=== PATIENT | male | born 1965 | race Caucasian/White ===

== ENCOUNTER 2017-10-23 01:30 | Inpatient (IN) | payer OTHER ==
[2017-10-23 03:08] LABS: BASO # 0.1 K/uL (0.0-0.2); BASO % 0.7 % (0.0-2.0); EOS # 0.2 K/uL (0.0-0.7); EOS % 2.8 % (0.0-4.0); HEMOGLOBIN 15.3 g/dL (12.0-18.0); LYMPH % 26.7 % (20.0-40.0); MEAN CELL VOLUME 93.1 fL (80.0-94.0); MEAN CORPUSCULAR HGB CONC 34.4 g/dL (33.0-37.0); MONO # 0.5 K/uL (0.0-0.8); MONO % 6.3 % (0.0-10.0); NEUT # 4.8 K/uL (1.8-7.0); NEUT % 63.5 % (50.0-75.0); RBC 4.77 Mil/uL (4.40-5.90); RED CELL DISTRIBUTION WIDTH 13.1 % (11.5-14.5); WHITE BLOOD COUNT 7.5 K/uL (4.8-10.8)
[2017-10-23 03:34] LABS: ALB/GLOB RATIO 1.2 (1.0-2.1); ALBUMIN 3.9 g/dL (3.5-5.0); ALT/SGPT 54 U/L (21-72); AST/SGOT 46 U/L (17-59); BLOOD UREA NITROGEN 19 mg/dL (9-20); CALCIUM 9.1 mg/dl (8.6-10.4); GFR AFRICAN-AMERICAN > 60; GFR NON-AFRICAN AMERICAN > 60
--- NOTE | 2017-10-23 03:56 | C.PDOC ---
Time Seen by Provider: 10/23/17 02:38 Chief Complaint (Nursing): Chest Pain Past Medical History Vital Signs: Last Vital Signs Temp 98.2 F 10/23/17 01:38 Pulse 77 10/23/17 01:38 Resp 20 10/23/17 01:38 BP 144/76 10/23/17 01:38 Pulse Ox 97 10/23/17 01:38 - Medical History PMH: HTN, Hypercholesterolemia - Social History Hx Tobacco Use: No Hx Alcohol Use: No Hx Substance Use: No - Immunization History Hx Tetanus Toxoid Vaccination: No Hx Influenza Vaccination: No Hx Pneumococcal Vaccination: No ED Course And Treatment - Laboratory Results Result Diagrams: 10/23/17 03:00 10/23/17 03:00 O2 Sat by Pulse Oximetry: 97 Disposition - Disposition
--- NOTE | 2017-10-23 04:00 | C.PDOC ---
History Of Present Illness 52 y/o male with c/o of midsternal chest pain x 2 days described as intermittent mid chest pressure worse with ambulation and exertion associated with SOB. Pt states pain has decreased somewhat " but feels an uneasy feeling chest. Pt denies URI sx, diaphoresis, dizziness, palpitations. Pt has PMHx HTN, cholesterol and has been noncompliant with meds x weeks. Patient denies past known cardiac h/o Time Seen by Provider: 10/23/17 02:38 Chief Complaint (Nursing): Chest Pain History Per: Patient History/Exam Limitations: no limitations Severity: Mild Pain Scale Rating Of: 4 Associated Symptoms: Dyspnea. denies: Nausea, Diaphoresis, Syncope Alleviating Factors: None Recent travel outside of the [place]: No Past Medical History Vital Signs: Last Vital Signs Temp 98.2 F 10/23/17 01:38 Pulse 84 10/23/17 04:01 Resp 18 10/23/17 04:01 BP 136/71 10/23/17 04:01 Pulse Ox 97 10/23/17 04:35 - Medical History PMH: HTN, Hypercholesterolemia Family History: States: Unknown Family Hx - Social History Hx Tobacco Use: No Hx Alcohol Use: No Hx Substance Use: No - Immunization History Hx Tetanus Toxoid Vaccination: No Hx Influenza Vaccination: No Hx Pneumococcal Vaccination: No Review Of Systems Constitutional: Negative for: Fever Cardiovascular: Positive for: Chest Pain. Negative for: Palpitations, Edema, Light Headedness Respiratory: Positive for: Shortness of Breath. Negative for: Cough, Wheezing Gastrointestinal: Negative for: Nausea, Vomiting, Abdominal Pain Neurological: Negative for: Weakness, Numbness Psych: Negative for: Anxiety Physical Exam - Physical Exam Appears: Well, Non-toxic Skin: Normal Color Eye(s): bilateral: Normal Inspection, PERRL Neck: Normal Cardiovascular: Rhythm Regular Respiratory: Normal Breath Sounds, No Rales, No Stridor, No Wheezing Gastrointestinal/Abdominal: Normal Exam, Soft, No Tenderness Extremity: Normal ROM Neurological/Psych: Oriented x3 Gait: Steady ED Course And Treatment - Laboratory Results Result Diagrams: 10/23/17 03:00 10/23/17 03:00 ECG: Interpreted By Me (and Dr Arevalo), Viewed By Me, Discussed With Supportability Engineer (Dr Padilla) ECG Rhythm: Sinus Rhythm (77), Nonspecific Changes (not a STEMI as per Dr Padilla) ECG Interpretation: No Acute Changes (LVH, early repolarization) O2 Sat by Pulse Oximetry: 97 Pulse Ox Interpretation: Normal - Radiology CXR Interpretation: Yes: No Acute Disease Progress Note: case d/w Randy - environmental protection forester plant operations vice president who reviewed EKG- confirmed NSTEMI and will consult in hospital - Case d/w dr Mandujano for admission. Pt is pain free now, in no distress , VSS Reassessment Condition: Unchanged Disposition Counseled Patient/Family Regarding: Diagnosis, Need For Followup, Rx Given - Disposition Disposition: HOSPITALIZED Disposition Time: 04:55 Condition: STABLE Instructions: Clot Dissolving Drugs for Heart Attack or Stroke Forms: [employer] ([place]) - Clinical Impression Clinical Impression: Chest pain, NSTEMI (non-ST elevated myocardial infarction)
--- NOTE | 2017-10-23 05:55 | CP.PCM.HP ---
<Emery Zaman - Last Filed: 10/23/17 05:45> History of Present Illness - History of Present Illness History of Present Illness: History obtained via [place] ethylene oxide panelboard operator Tory Eli ([id number]) CC: Chest pain and SOB HPI: Patient is a 52 year old [place]-speaking male with a PMH of uncontrolled HTN and hypercholesterolemia who presents complaining of chest pain and shortness of breath. Patient states that last week he experienced 1-2 episodes of chest pain, that became constant over the last two days, prompting his ED visit. Pain is described as burning pain in the center of his chest, nonradiating, constant, 7-8/10 at worst and 0/10 at best, worse with walking and exertion, better with rest, nonpleuritic, nonpositional. Pain is accompanied by difficulty breathing and feeling tired, the way someone feels after running. Patient has no history of similar chest pain/SOB. He last saw a PMD (can't recall name) about 8 months ago for a dizziness spell, at which time he was diagnosed with HTN and high cholesterol and prescribed medication (Losartan-HCTZ , statin, ASA). Patient states that he took the medications for 15 days and stopped because he would forget and didn't feel he needed it. He resumed taking the medications for the last 2 days because he was feeling chest pain. Denies ever having a stress test in the past. PMD: can't remember Basting Cleaner: none PMH: HTN, hypercholesterolemia. Denies DM. PSH: denies Medications: took for 15 days 8 months ago, then stopped, and resumed for last 2 days: Losartan-HCTZ 100/12.5mg, statin (unknown name/dose), ASA 81mg Allergies: denies Family history: No known history of HI/CVA/CA. Mother at unknown age for unknown reason. Father living without health issues at age 99. Brother has DM. Social History: [place] speaking only; lives in [place] with , son and daughter; works various jobs including construction; denies current/prior tobacco use; denies current/prior ETOH; denies current/prior recreational drugs use; denies recent cocaine use; no exercise except for what he does at work; eats various types of food including bread, sandwiches, oatmeal, sugary foods, meat 1-2x per week Code status: Full code No advance directive In the event that he is unable to make his own healthcare decisions, patient wants his Neyda Red to make decisions for him ([phone]) Present on Admission - Present on Admission Any Indicators Present on Admission: No Review of Systems - Constitutional Constitutional: absent: Chills, Fever - Cardiovascular Cardiovascular: Chest Pain, Chest Pain at Rest. absent: Claudication, Diaphoresis, Dyspnea, Dyspnea on Exertion, Palpitations, Syncope - Respiratory Respiratory: absent: Dyspnea, Dyspnea on Exertion - Gastrointestinal Gastrointestinal: absent: Abdominal Pain - Genitourinary Genitourinary: Urinary Frequency - Integumentary Integumentary: absent: Bleeding Lesions - Neurological Neurological: absent: Focal Weakness Past Patient History - Infectious Disease Hx of Infectious Diseases: None - Past Social History Smoking Status: Never Smoked - CARDIAC Hx Hypercholesterolemia: Yes Hx Hypertension: Yes - PSYCHIATRIC Hx Substance Use: No - SURGICAL HISTORY Hx Surgeries: No - ANESTHESIA Hx Anesthesia: No Hx Anesthesia Reactions: No Meds Allergies/Adverse Reactions: Allergies Allergy/AdvReac Type Severity Reaction Status Date / Time No Known Allergies Allergy Verified 10/23/17 01:40 Physical Exam - Constitutional Appears: Non-toxic, No Acute Distress - Head Exam Head Exam: ATRAUMATIC, NORMAL INSPECTION - Eye Exam Eye Exam: EOMI, PERRL - ENT Exam ENT Exam: Mucous Membranes Moist - Respiratory Exam Respiratory Exam: Wheezes, NORMAL BREATHING PATTERN. absent: Rales, Rhonchi Additional comments: Late expiratory wheezing bilaterally - Cardiovascular Exam Cardiovascular Exam: REGULAR RHYTHM, +S1, +S2. absent: Bradycardia, Tachycardia , JVD, Systolic Murmur - GI/Abdominal Exam GI & Abdominal Exam: Normal Bowel Sounds, Soft. absent: Guarding - Extremities Exam Extremities exam: Positive for: normal capillary refill, normal inspection, pedal pulses present. Negative for: pedal edema, tenderness - Neurological Exam Neurological exam: Oriented x3 - Skin Skin Exam: Intact, Normal Color, Warm Results - Vital Signs Recent Vital Signs: Last Vital Signs Temp 98.2 F 10/23/17 01:38 Pulse 84 10/23/17 04:01 Resp 18 10/23/17 04:01 BP 136/71 10/23/17 04:01 Pulse Ox 97 10/23/17 04:57 - Labs Result Diagrams: 10/23/17 03:00 10/23/17 03:00 Labs: Laboratory Results - last 24 hr 10/23/17 10/23/17 03:00 03:00 WBC 7.5 RBC 4.77 Hgb 15.3 Hct 44.4 MCV 93.1 MCH 32.0 H MCHC 34.4 RDW 13.1 Plt Count 268 MPV 8.0 Neut % (Auto) 63.5 Lymph % (Auto) 26.7 [place] % (Auto) 6.3 Eos % (Auto) 2.8 Baso % (Auto) 0.7 Neut # (Auto) 4.8 Lymph # (Auto) 2.0 [place] # (Auto) 0.5 Eos # (Auto) 0.2 Baso # (Auto) 0.1 Sodium 139 Potassium 3.8 Chloride 96 L Carbon Dioxide 28 Anion Gap 19 BUN 19 Creatinine 0.9 Est GFR ( Amer) > 60 Est GFR (Non-Af Amer) > 60 Random Glucose 91 Calcium 9.1 Total Bilirubin 0.5 AST 46 ALT 54 Alkaline Phosphatase 64 Troponin I 1.1100 H* Total Protein 7.3 Albumin 3.9 Globulin 3.4 Albumin/Globulin Ratio 1.2 Assessment & Plan (1) NSTEMI (non-ST elevated myocardial infarction) Assessment and Plan: Troponin ELEVATED 1.110 EKG reviewed - ST segment depressions, LVH RIAN score 4 - HIGH RISK (ASA use in past 7 days, Severe angina, EKG ST changes , Positive cardiac markers) Basting Cleaner Dr Padilla on board * Cardiac Cath soon - possibly today ASA 81mg PO QD Lovenox 75mg SC QD Metoprolol Tartrate 25mg PO BID Lisinopril 5mg PO QD Crestor 10mg PO HS Will hold second antiplatelet at Dr Padilla's request F/U serial ALINA's/EKG's F/U Lipid panel F/U TSH and Free T4 F/U HgA1C F/U ECHO Status: Acute Priority: High (2) Hypertension Assessment and Plan: BP well controlled HOLD home med Losartan-HCTZ 100/12.5mg Status: Acute Priority: High (3) HLD (hyperlipidemia) Assessment and Plan: F/U Lipid Panel Crestor 10mg PO QD Status: Acute Priority: High (4) Prophylactic measure Assessment and Plan: On therapeutic lovenox GI prophylaxis not indicated SCDs NPO for now as patient might have cardiac cath today Status: Acute Priority: Low <Dany Mandujano - Last Filed: 10/23/17 06:27> Results - Vital Signs Recent Vital Signs: Last Vital Signs Temp 98.2 F 10/23/17 01:38 Pulse 78 10/23/17 06:00 Resp 14 10/23/17 06:00 BP 157/83 H 10/23/17 06:00 Pulse Ox 96 10/23/17 06:00 - Labs Result Diagrams: 10/23/17 03:00 10/23/17 03:00 Labs: Laboratory Results - last 24 hr 10/23/17 10/23/17 10/23/17 03:00 03:00 05:52 WBC 7.5 RBC 4.77 Hgb 15.3 Hct 44.4 MCV 93.1 MCH 32.0 H MCHC 34.4 RDW 13.1 Plt Count 268 MPV 8.0 Neut % (Auto) 63.5 Lymph % (Auto) 26.7 [place] % (Auto) 6.3 Eos % (Auto) 2.8 Baso % (Auto) 0.7 Neut # (Auto) 4.8 Lymph # (Auto) 2.0 [place] # (Auto) 0.5 Eos # (Auto) 0.2 Baso # (Auto) 0.1 Sodium 139 Potassium 3.8 Chloride 96 L Carbon Dioxide 28 Anion Gap 19 BUN 19 Creatinine 0.9 Est GFR ( Amer) > 60 Est GFR (Non-Af Amer) > 60 Random Glucose 91 Calcium 9.1 Phosphorus 4.0 Magnesium 2.2 Total Bilirubin 0.5 AST 46 ALT 54 Alkaline Phosphatase 64 Troponin I 1.1100 H* Total Protein 7.3 Albumin 3.9 Globulin 3.4 Albumin/Globulin Ratio 1.2 Triglycerides 150 H D Cholesterol 181 LDL Cholesterol Direct 150 H HDL Cholesterol 23 L Assessment & Plan - Date & Time Date: 10/23/17 (I have seen and examined the patient. I agree with the findings and plan of care as documented by Dr. Zaman. Patient with NSTEMI. ROMIx3 with EKG. Aspirin. Statin. Lovenox. Metoprolol. 2D Echo. Monitor for acute changes.) Time: 06:26 Attending/Attestation - Attestation I have personally seen and examined this patient.: Yes I have fully participated in the care of the patient.: Yes I have reviewed all pertinent clinical information: Yes
[2017-10-23 06:09] LABS: MAGNESIUM 2.2 mg/dL (1.6-2.3)
[2017-10-23] MEDS: Enoxaparin 80 mg Syringe SC SCH ×3 (07:10→21:28)
[2017-10-23] MEDS ORDERED: Enoxaparin 80 mg Syringe ONE (07:11)
[2017-10-23 10:00] LABS: CK-MB 4.88 ng/mL (0.0-3.38); TROPONIN I 0.844 ng/mL (0.00-0.120)
--- NOTE | 2017-10-23 10:08 | RAD ---
HISTORY: COMPARISON: 11/29/2013. TECHNIQUE: Chest PA and lateral FINDINGS: LINES AND TUBES: None. LUNG AND PLEURA: The lungs are well inflated and clear. HEART AND MEDIASTINUM: The heart is not enlarged. The hilar and mediastinal contours are within normal limits. SKELETAL STRUCTURES: The bony structures are within normal limits for the patient's age. VISUALIZED UPPER ABDOMEN: Normal. OTHER FINDINGS: None. IMPRESSION: No active pulmonary disease.
[2017-10-23 15:40] LABS: CK-MB 4.95 ng/mL (0.0-3.38); TROPONIN I 0.839 ng/mL (0.00-0.120)
--- NOTE | 2017-10-23 16:30 | CP.PCM.PN ---
<Robbi Kevin E - Last Filed: 10/23/17 16:51> Subjective - Date & Time of Evaluation Date of Evaluation: 10/23/17 Time of Evaluation: 09:25 - Subjective Subjective: Medicine progress note ( Dr. Salas's service) Patient was seen and examined at bedside, with presents. Patient was resting comfortably sleeping. During the encounter, patient reports that he is doing well with very mild intermittent chest pain but denies nausea, vomiting, diaphoresis, palpitations, abdominal pain or any numbness and tingling. Patient was seen again around 3:20pm, due result on subsequent EKG. Patient was resting comfortably in bed, watching TV on his phone and denies chest pain. Patient reports that he actually feels better. Patient was seen again 4:10pm and denies chest pain or any other symptoms. Objective - Vital Signs/Intake and Output Vital Signs (last 24 hours): Temp Pulse Resp BP Pulse Ox 98.9 F 78 20 165/83 H 95 10/23/17 14:51 10/23/17 14:51 10/23/17 14:51 10/23/17 14:51 10/23/17 14:51 - Medications Medications: Current Medications Aspirin (Aspirin Chewable) 81 mg PO DAILY [facility] Last Admin: 10/23/17 10:17 Dose: 81 mg Enoxaparin Sodium (Lovenox) 75 mg SC Q12 [facility] Last Admin: 10/23/17 07:58 Dose: Not Given Lisinopril (Zestril) 5 mg PO DAILY [facility] Last Admin: 10/23/17 10:17 Dose: 5 mg Metoprolol Tartrate (Lopressor) 25 mg PO BID [facility] Last Admin: 10/23/17 10:17 Dose: 25 mg Pneumococcal Polyvalent Vaccine (Pneumovax 23 Vaccine) 0.5 ml IM .ONCE ONE Stop: 10/24/17 10:01 Rosuvastatin Calcium (Crestor) 10 mg PO HS [facility] Last Admin: 10/23/17 06:50 Dose: Not Given - Labs Labs: 10/23/17 03:00 10/23/17 03:00 - Constitutional Appears: Well, No Acute Distress - Head Exam Head Exam: ATRAUMATIC, NORMAL INSPECTION - Eye Exam Eye Exam: EOMI, Normal appearance - ENT Exam ENT Exam: Mucous Membranes Moist - Respiratory Exam Respiratory Exam: Clear to Ausculation Bilateral, NORMAL BREATHING PATTERN. absent: Rhonchi, Wheezes, Respiratory Distress - Cardiovascular Exam Cardiovascular Exam: REGULAR RHYTHM, +S1, +S2. absent: Murmur - GI/Abdominal Exam GI & Abdominal Exam: Soft, Normal Bowel Sounds. absent: Firm, Guarding, Rigid, Tenderness - Extremities Exam Extremities Exam: Normal Inspection. absent: Calf Tenderness, Pedal Edema - Neurological Exam Neurological Exam: Alert, Awake, Oriented x3 - Psychiatric Exam Psychiatric exam: Normal Affect, Normal Mood - Skin Skin Exam: Normal Color Assessment and Plan (1) NSTEMI (non-ST elevated myocardial infarction) Assessment & Plan: Cardiology Consult, Dr. Padilla----> Help appreciated Labs: Troponin: 1.110---> 0.8440---->0.8390 EKG reviewed - ST segment depressions, LVH. Subsequent EKG: reported as anterior infarct, troponin trending down and patient remain asymptomatic RIAN score 4 - HIGH RISK (ASA use in past 7 days, Severe angina, EKG ST changes , Positive cardiac markers) Lipid panel: TGL:150, Cholesterol: 181, LDL: 150 and HDL:23 TSH: 5.43 and Free T4: 0.78 Hemoglobin A1C: 5.8 Imaging: * Awaiting official echo report Medications: * ASA 81mg PO QD * Lovenox 75mg SC QD * Metoprolol Tartrate 25mg PO BID * Crestor 10mg PO HS * Will hold second antiplatelet at Dr Padilla's request Status: Acute (2) Hypertension Assessment & Plan: Metoprolol 25mg PO BID Lisinopril 5mg PO daily Continue to monitor with vital sign check Status: Acute (3) HLD (hyperlipidemia) Assessment & Plan: Lipid panel: TGL:150, Cholesterol: 181, LDL: 150 and HDL:23 Medication: * Crestor 10mg PO HS Status: Acute (4) Prophylactic measure Assessment & Plan: GI: Pepcid 20mg PO daily DVT: Lovenox 75mg SC Q12H Heart healthy diet All plans and management discussed with attending, Dr. Salas Status: Acute <Shayna Salas V - Last Filed: 10/23/17 23:32> Objective - Vital Signs/Intake and Output Vital Signs (last 24 hours): Temp Pulse Resp BP Pulse Ox 98.2 F 82 18 120/76 96 10/23/17 19:19 10/23/17 19:19 10/23/17 19:19 10/23/17 19:19 10/23/17 19:19 Intake and Output: 10/23/17 10/24/17 18:59 06:59 Intake Total 200 Balance 200 - Medications Medications: Current Medications Aspirin (Aspirin Chewable) 81 mg PO DAILY [facility] Last Admin: 10/23/17 10:17 Dose: 81 mg Enoxaparin Sodium (Lovenox) 75 mg SC Q12 [facility] Stop: 10/24/17 06:00 Last Admin: 10/23/17 21:28 Dose: Not Given Famotidine (Pepcid) 20 mg PO DAILY [facility] Lisinopril (Zestril) 5 mg PO DAILY [facility] Last Admin: 10/23/17 10:17 Dose: 5 mg Metoprolol Tartrate (Lopressor) 25 mg PO BID [facility] Last Admin: 10/23/17 18:04 Dose: 25 mg Pneumococcal Polyvalent Vaccine (Pneumovax 23 Vaccine) 0.5 ml IM .ONCE ONE Stop: 10/24/17 10:01 Rosuvastatin Calcium (Crestor) 10 mg PO HS [facility] Last Admin: 10/23/17 21:26 Dose: 10 mg - Labs Labs: 10/23/17 03:00 10/23/17 03:00 Attending/Attestation - Attestation I have personally seen and examined this patient.: Yes I have fully participated in the care of the patient.: Yes I have reviewed all pertinent clinical information, including history, physical exam and plan: Yes Notes (Text): Patient seen, examined and case discuss with medical auditor. Patient seen during morning rounds after completing his echocardiogram. Patient reports chest pain has subsided, denies CANO, nausea, denies vomitting, denies headache. Patient reports chest pain on exertion for 2 days which he describes as pressure but denies any currently. Reviewed subsequent EKG with Dr. Padilla, nonstemi, and scheduled for cardiac cath in AM. NPO after midnight. Will hold Lovenox in the AM for Cardiac cath at 10AM. Cardiology is aware of consult and has seen the patient today. Assessment/Plan (1) NSTEMI (non-ST elevated myocardial infarction) Impaired Glucose Tolerance Assessment & Plan: * Cardiology Consult, Dr. Padilla----> Help appreciated Labs: * Troponin: 1.110---> 0.8440---->0.8390 * EKG reviewed - ST segment depressions, LVH. Subsequent EKG: reported as anterior infarct, troponin trending down and patient remain asymptomatic * RIAN score 4 - HIGH RISK (ASA use in past 7 days, Severe angina, EKG ST changes, Positive cardiac markers) * Lipid panel: TGL:150, Cholesterol: 181, LDL: 150 and HDL:23 * TSH: 5.43 and Free T4: 0.78 * Hemoglobin A1C: 5.8 Imaging: * Awaiting official echo report Medications: * ASA 81mg PO QD * Lovenox 75mg SC Q12-->hold AM dose for cath * Metoprolol Tartrate 25mg PO BID * Crestor 10mg PO HS * Cardiac cath in AM, 10/24 Status: Acute (2) Hypertension Assessment & Plan: * Metoprolol 25mg PO BID * Lisinopril 5mg PO daily * Continue to monitor with vital sign check Status: Chronic (3) HLD (hyperlipidemia) Assessment & Plan: * Lipid panel: TGL:150, Cholesterol: 181, LDL: 150 and HDL:23 Medication: * Crestor 10mg PO HS Status: Chronic (4) Prophylactic measure Assessment & Plan: GI: Pepcid 20mg PO daily DVT: Lovenox 75mg SC Q12H Heart healthy diet NPO after midnight Status: Acute Disposition: Patient is NPO for cardiac cath in AM 10AM. Cardiology is on board.
--- NOTE | 2017-10-23 23:03 | CARD ---
APPROVED REPORT EXAM: Two-dimensional and M-mode echocardiogram with Doppler and color Doppler. Other Information Quality : GoodRhythm : INDICATION Chest Pain Non STEMI RISK FACTORS Hypertension Hyperlipidemia 2D DIMENSIONS IVSd1.5 (0.7-1.1cm)LVDd4.4 (3.9-5.9cm) PWd1.5 (0.7-1.1cm)LVDs2.8 (2.5-4.0cm) FS (%) 37.0 %LVEF (%)67.1 (>50%) M-Mode DIMENSIONS Left Atrium (MM)3.99 (2.5-4.0cm)Aortic Root3.67 (2.2-3.7cm) Aortic Cusp Exc.2.37 (1.5-2.0cm) Mitral Valve MV E Pekcmocb79.2cm/sMV A Xuxjdmhv33.2cm/sE/A ratio1.1 TDI E/Lateral E'0.0E/Medial E'0.0 Tricuspid Valve TR Peak [id number]/sTR Peak [id number] <Conclusion> Left ventricle: thickness: normal; size: normal; overall ejection fraction: 65%: diastolic filling pressures: elevated Mitral valve: annulus: normal: leaflets: normal: excursion: normal; no significant trans-mitral gradient: mild incompetence: left atrium: normal Aortic valve: leaflets: normal: excursion: normal; no significant trans-aortic gradient: No significant incompetence: aortic root: normal Right sided Structures: Pulmonary valve: normal; no significant incompetence; Tricuspid valve: normal; no significant incompetence: Intra-cardiac hemodynamics: pulmonary systolic pressures: normal; central venous pressures: normal No pericardial effusion
--- NOTE | 2017-10-24 00:25 | CP.PCM.CON ---
History of Present Illness - History of Present Illness History of Present Illness: Consulation for evaluation of CP and NSTEMI HPI: 52 year old male with hx of HTN, dyslipidemia presenting with c/o intermittent cp x 1 week accompanied with SOB. Sx got progrssively worse with increased frequency and intensity for which he came to the ED. Initial EKG done showed LVH with repolarization and had +ve TnI. Echo done today showed normal LVEF with moderate concentric LVH. Review of Systems - Review of Systems Systems not reviewed;Unavailable: Acuity of Condition - Constitutional Constitutional: As Per HPI - EENT Eyes: As Per HPI Ears: As Per HPI Nose/Mouth/Throat: As Per HPI - Cardiovascular Cardiovascular: As Per HPI, Chest Pain, Diaphoresis, Dyspnea, Dyspnea on Exertion - Respiratory Respiratory: As Per HPI - Gastrointestinal Gastrointestinal: As Per HPI - Genitourinary Genitourinary: As Per HPI - Reproductive: Male Reproductive:Male: As Per HPI - Musculoskeletal Musculoskeletal: As Per HPI - Integumentary Integumentary: As Per HPI - Neurological Neurological: As Per HPI - Psychiatric Psychiatric: As Per HPI - Endocrine Endocrine: As Per HPI - Hematologic/Lymphatic Hematologic: As Per HPI Past Patient History - Infectious Disease Hx of Infectious Diseases: None - Past Medical History & Family History Past Medical History?: Yes - Past Social History Smoking Status: Never Smoked - CARDIAC Hx Cardiac Disorders: Yes Hx Hypercholesterolemia: Yes Hx Hypertension: Yes - PULMONARY Hx Respiratory Disorders: No - NEUROLOGICAL Hx Neurological Disorder: No - HEENT Hx HEENT Problems: No - RENAL Hx Chronic Kidney Disease: No - ENDOCRINE/METABOLIC Hx Endocrine Disorders: No - HEMATOLOGICAL/ONCOLOGICAL Hx Blood Disorders: No - INTEGUMENTARY Hx Dermatological Problems: No - MUSCULOSKELETAL/RHEUMATOLOGICAL Hx Musculoskeletal Disorders: No Hx Falls: No - GASTROINTESTINAL Hx Gastrointestinal Disorders: No - GENITOURINARY/GYNECOLOGICAL Hx Genitourinary Disorders: No - PSYCHIATRIC Hx Psychophysiologic Disorder: No Hx Substance Use: No - SURGICAL HISTORY Hx Surgeries: No - ANESTHESIA Hx Anesthesia: No Hx Anesthesia Reactions: No Hx Malignant Hyperthermia: No Has any member of the family had a problem w/ anesthesia?: No Meds Allergies/Adverse Reactions: Allergies Allergy/AdvReac Type Severity Reaction Status Date / Time No Known Allergies Allergy Verified 10/23/17 01:40 - Medications Medications: Current Medications Aspirin (Aspirin Chewable) 81 mg PO DAILY [facility] Last Admin: 10/23/17 10:17 Dose: 81 mg Enoxaparin Sodium (Lovenox) 75 mg SC Q12 [facility] Stop: 10/24/17 06:00 Last Admin: 10/23/17 21:28 Dose: Not Given Famotidine (Pepcid) 20 mg PO DAILY [facility] Lisinopril (Zestril) 5 mg PO DAILY [facility] Last Admin: 10/23/17 10:17 Dose: 5 mg Metoprolol Tartrate (Lopressor) 25 mg PO BID [facility] Last Admin: 10/23/17 18:04 Dose: 25 mg Pneumococcal Polyvalent Vaccine (Pneumovax 23 Vaccine) 0.5 ml IM .ONCE ONE Stop: 10/24/17 10:01 Rosuvastatin Calcium (Crestor) [address] [facility] Last Admin: 10/23/17 21:26 Dose: 10 mg Physical Exam - Constitutional Appears: Well - Head Exam Head Exam: ATRAUMATIC, NORMAL INSPECTION, NORMOCEPHALIC - Eye Exam Eye Exam: EOMI, Normal appearance, PERRL Pupil Exam: NORMAL ACCOMODATION, PERRL - ENT Exam ENT Exam: Mucous Membranes Moist, Normal Exam - Neck Exam Neck exam: Positive for: Normal Inspection - Respiratory Exam Respiratory Exam: Clear to Auscultation Bilateral, NORMAL BREATHING PATTERN - Cardiovascular Exam Cardiovascular Exam: REGULAR RHYTHM, RRR, +S1, +S2, Systolic Murmur - GI/Abdominal Exam GI & Abdominal Exam: Normal Bowel Sounds, Soft. absent: Tenderness - Extremities Exam Extremities exam: Positive for: normal inspection - Back Exam Back exam: NORMAL INSPECTION - Neurological Exam Neurological exam: Alert, CN II-XII Intact, Normal Gait, Oriented x3, Reflexes Normal - Psychiatric Exam Psychiatric exam: Normal Affect, Normal Mood - Skin Skin Exam: Dry, Intact, Normal Color, Warm Results - Vital Signs Recent Vital Signs: Last Vital Signs Temp 98.2 F 10/23/17 19:19 Pulse 82 10/23/17 19:19 Resp 18 10/23/17 19:19 BP 120/76 10/23/17 19:19 Pulse Ox 96 10/23/17 19:19 - Labs Result Diagrams: 10/23/17 03:00 10/23/17 03:00 Labs: Laboratory Results - last 24 hr 10/23/17 10/23/17 10/23/17 03:00 03:00 05:52 WBC 7.5 RBC 4.77 Hgb 15.3 Hct 44.4 MCV 93.1 MCH 32.0 H MCHC 34.4 RDW 13.1 Plt Count 268 MPV 8.0 Neut % (Auto) 63.5 Lymph % (Auto) 26.7 [place] % (Auto) 6.3 Eos % (Auto) 2.8 Baso % (Auto) 0.7 Neut # (Auto) 4.8 Lymph # (Auto) 2.0 [place] # (Auto) 0.5 Eos # (Auto) 0.2 Baso # (Auto) 0.1 Sodium 139 Potassium 3.8 Chloride 96 L Carbon Dioxide 28 Anion Gap 19 BUN 19 Creatinine 0.9 Est GFR ( Amer) > 60 Est GFR (Non-Af Amer) > 60 Random Glucose 91 Hemoglobin A1c Calcium 9.1 Phosphorus Magnesium Total Bilirubin 0.5 AST 46 ALT 54 Alkaline Phosphatase 64 Total Creatine Kinase CK-MB (Mass) Troponin I 1.1100 H* Total Protein 7.3 Albumin 3.9 Globulin 3.4 Albumin/Globulin Ratio 1.2 Triglycerides Cholesterol LDL Cholesterol Direct HDL Cholesterol Free T4 0.78 TSH 3rd Generation 10/23/17 10/23/17 10/23/17 05:52 05:52 09:25 WBC RBC Hgb Hct MCV MCH MCHC RDW Plt Count MPV Neut % (Auto) Lymph % (Auto) [place] % (Auto) Eos % (Auto) Baso % (Auto) Neut # (Auto) Lymph # (Auto) [place] # (Auto) Eos # (Auto) Baso # (Auto) Sodium Potassium Chloride Carbon Dioxide Anion Gap BUN Creatinine Est GFR ( Amer) Est GFR (Non-Af Amer) Random Glucose Hemoglobin A1c 5.8 Calcium Phosphorus 4.0 Magnesium 2.2 Total Bilirubin AST ALT Alkaline Phosphatase Total Creatine Kinase 157 CK-MB (Mass) 4.88 H Troponin I 0.8440 H* Total Protein Albumin Globulin Albumin/Globulin Ratio Triglycerides 150 H D Cholesterol 181 LDL Cholesterol Direct 150 H HDL Cholesterol 23 L Free T4 TSH 3rd Generation 5.43 H 10/23/17 15:05 WBC RBC Hgb Hct MCV MCH MCHC RDW Plt Count MPV Neut % (Auto) Lymph % (Auto) [place] % (Auto) Eos % (Auto) Baso % (Auto) Neut # (Auto) Lymph # (Auto) [place] # (Auto) Eos # (Auto) Baso # (Auto) Sodium Potassium Chloride Carbon Dioxide Anion Gap BUN Creatinine Est GFR ( Amer) Est GFR (Non-Af Amer) Random Glucose Hemoglobin A1c Calcium Phosphorus Magnesium Total Bilirubin AST ALT Alkaline Phosphatase Total Creatine Kinase 150 CK-MB (Mass) 4.95 H Troponin I 0.8390 H* Total Protein Albumin Globulin Albumin/Globulin Ratio Triglycerides Cholesterol LDL Cholesterol Direct HDL Cholesterol Free T4 TSH 3rd Generation Assessment & Plan (1) NSTEMI (non-ST elevated myocardial infarction) Assessment and Plan: AC per ACS protocol asa, bb, statins arbs plan for cardiac cath in am npo p mn Status: Acute Priority: High (2) Chest pain Status: Acute (3) HLD (hyperlipidemia) Status: Acute Priority: High (4) Hypertension Status: Acute Priority: High
[2017-10-24 04:28] LABS: BASO # 0.1 K/uL (0.0-0.2); BASO % 0.8 % (0.0-2.0); EOS # 0.2 K/uL (0.0-0.7); EOS % 2.9 % (0.0-4.0); HEMOGLOBIN 15.8 g/dL (12.0-18.0); LYMPH # 2.1 K/uL (1.0-4.3); LYMPH % 26.8 % (20.0-40.0); MEAN CELL VOLUME 92.6 fL (80.0-94.0); MEAN CORPUSCULAR HEMOGLOBIN 31.9 pg (27.0-31.0); MEAN CORPUSCULAR HGB CONC 34.4 g/dL (33.0-37.0); MEAN PLATELET VOLUME 7.6 fL (7.2-11.7); MONO # 0.6 K/uL (0.0-0.8); MONO % 8.1 % (0.0-10.0); NEUT # 4.7 K/uL (1.8-7.0); NEUT % 61.4 % (50.0-75.0); NRBC % 0.4 % (0.0-2.0); RBC 4.96 Mil/uL (4.40-5.90); WHITE BLOOD COUNT 7.7 K/uL (4.8-10.8)
[2017-10-24 04:44] LABS: ALB/GLOB RATIO 1.2 (1.0-2.1); ALBUMIN 3.8 g/dL (3.5-5.0); ALT/SGPT 44 U/L (21-72); AST/SGOT 38 U/L (17-59); BLOOD UREA NITROGEN 17 mg/dL (9-20); CALCIUM 9.2 mg/dl (8.6-10.4); GFR AFRICAN-AMERICAN > 60; GFR NON-AFRICAN AMERICAN > 60; MAGNESIUM 2.4 mg/dL (1.6-2.3)
--- NOTE | 2017-10-24 07:50 | CARD ---
APPROVED REPORT EKG Measurement Heart [id number] <Conclusion> Normal sinus rhythm Left ventricular hypertrophy with repolarization abnormality Abnormal ECG
[2017-10-24 08:16] LABS: INR 1.1; PROTHROMBIN TIME 12.3 SECONDS (9.7-12.2)
[2017-10-24] MEDS ORDERED: Pneumococcal 23-Valent Vaccine IM ONE (10:00)
[2017-10-24] MEDS ORDERED: Influenza Vaccine 60 mcg/0.5 mL SYR (4YR UP) IM ONE (10:00)
[2017-10-24] MEDS ORDERED: Midazolam 2 MG/2 ML VIAL ONE (10:12)
[2017-10-24] MEDS ORDERED: Verapamil 2 ML ONE (11:00)
[2017-10-24] MEDS ORDERED: Iodixanol 320 MG/ML 200 ML BOTTLE IV ONE (11:15)
--- NOTE | 2017-10-24 11:23 | CP.PCM.PN ---
Subjective - Date & Time of Evaluation Date of Evaluation: 10/24/17 Time of Evaluation: 11:23 - Subjective Subjective: Patient seen and examined post- cardiac catheterization. Patient reports no chest pain, pain at the site of insertion (radial) artery utilized, or hematoma. Objective - Vital Signs/Intake and Output Vital Signs (last 24 hours): Temp Pulse Resp BP Pulse Ox 98.5 F 76 20 130/77 96 10/24/17 08:00 10/24/17 08:00 10/24/17 08:00 10/24/17 09:09 10/24/17 08:00 Intake and Output: 10/24/17 10/24/17 06:59 18:59 Intake Total 210 Balance 210 - Medications Medications: Current Medications Aspirin (Aspirin Chewable) 81 mg PO DAILY [facility] Last Admin: 10/24/17 09:09 Dose: 81 mg Famotidine (Pepcid) 20 mg PO DAILY [facility] Last Admin: 10/24/17 09:11 Dose: 20 mg Lisinopril (Zestril) 5 mg PO DAILY [facility] Last Admin: 10/24/17 09:10 Dose: 5 mg Metoprolol Tartrate (Lopressor) 25 mg PO BID [facility] Last Admin: 10/24/17 09:09 Dose: 25 mg Rosuvastatin Calcium (Crestor) 10 mg PO [facility] Last Admin: 10/23/17 21:26 Dose: 10 mg - Labs Labs: 10/24/17 04:24 10/24/17 04:24 PT 12.3 SECONDS (9.7-12.2) H 10/24/17 07:58 INR 1.1 10/24/17 07:58 APTT 35 SECONDS (21-34) H 10/24/17 07:58 - Constitutional Appears: Non-toxic, No Acute Distress - Head Exam Head Exam: ATRAUMATIC, NORMOCEPHALIC - Eye Exam Eye Exam: EOMI, Normal appearance - Neck Exam Neck Exam: Normal Inspection - Respiratory Exam Respiratory Exam: NORMAL BREATHING PATTERN. absent: Decreased Breath Sounds, Clear to Ausculation Bilateral - Cardiovascular Exam Cardiovascular Exam: +S1, +S2 - Extremities Exam Extremities Exam: Normal Inspection. absent: Tenderness - Back Exam Back Exam: NORMAL INSPECTION. absent: CVA tenderness (L), CVA tenderness (R) - Neurological Exam Neurological Exam: Alert, Awake, Oriented x3 - Psychiatric Exam Psychiatric exam: Normal Affect, Normal Mood - Skin Skin Exam: Dry, Intact, Normal Color, Warm Assessment and Plan - Assessment and Plan (Free Text) Assessment: 52 year old male who presented to [facility] with chest pain, diaphoresis, and EKG and laboratory findings consistent with [place]. Plan: Further recommendations per attending physician Dr. Padilla.
--- NOTE | 2017-10-24 13:15 | CP.PCM.PN ---
<Robbi Kevin E - Last Filed: 10/24/17 13:22> Subjective - Date & Time of Evaluation Date of Evaluation: 10/24/17 Time of Evaluation: 07:30 - Subjective Subjective: Medicine progress note ( Dr. Salas's service) Patient was seen and examined at bedside. Patient was resting comfortably sleeping. During the encounter, patient reports that he is doing well with no complaints. Patient denies chest pain, SOB, palpitations, nausea, vomiting, fever, chills and diaphoresis. Patient is aware that he has a cardiac catherization today. As per patient, there were no acute issues overnight. Objective - Vital Signs/Intake and Output Vital Signs (last 24 hours): Temp Pulse Resp BP Pulse Ox 98.5 F 76 20 130/77 96 10/24/17 08:00 10/24/17 08:00 10/24/17 08:00 10/24/17 09:09 10/24/17 08:00 Intake and Output: 10/24/17 10/24/17 06:59 18:59 Intake Total 210 Balance 210 - Medications Medications: Current Medications Aspirin (Aspirin Chewable) 81 mg PO DAILY [facility] Last Admin: 10/24/17 09:09 Dose: 81 mg Famotidine (Pepcid) 20 mg PO DAILY [facility] Last Admin: 10/24/17 09:11 Dose: 20 mg Lisinopril (Zestril) 5 mg PO DAILY [facility] Last Admin: 10/24/17 09:10 Dose: 5 mg Metoprolol Tartrate (Lopressor) 25 mg PO BID [facility] Last Admin: 10/24/17 09:09 Dose: 25 mg Rosuvastatin Calcium (Crestor) 10 mg PO [facility] Last Admin: 10/23/17 21:26 Dose: 10 mg - Labs Labs: 10/24/17 04:24 10/24/17 04:24 PT 12.3 SECONDS (9.7-12.2) H 10/24/17 07:58 INR 1.1 10/24/17 07:58 APTT 35 SECONDS (21-34) H 10/24/17 07:58 - Constitutional Appears: Well, No Acute Distress - Head Exam Head Exam: ATRAUMATIC, NORMAL INSPECTION - Eye Exam Eye Exam: EOMI, Normal appearance - ENT Exam ENT Exam: Mucous Membranes Moist - Respiratory Exam Respiratory Exam: Clear to Ausculation Bilateral, NORMAL BREATHING PATTERN. absent: Rales, Rhonchi, Wheezes - Cardiovascular Exam Cardiovascular Exam: REGULAR RHYTHM, +S1, +S2. absent: Tachycardia, Murmur - GI/Abdominal Exam GI & Abdominal Exam: Soft, Normal Bowel Sounds. absent: Distended, Firm, Guarding, Rigid, Tenderness - Extremities Exam Extremities Exam: Normal Inspection. absent: Calf Tenderness, Pedal Edema - Neurological Exam Neurological Exam: Alert, Awake, Oriented x3 - Psychiatric Exam Psychiatric exam: Normal Affect - Skin Skin Exam: Normal Color Assessment and Plan (1) NSTEMI (non-ST elevated myocardial infarction) Assessment & Plan: Cardiology Consult, Dr. Padilla----> Help appreciated * Cardiac catherization with Dr. Padilla 10/24/17; will f/u report and manage as per recommendation Labs: Troponin: 1.110---> 0.8440---->0.8390 EKG reviewed - ST segment depressions, LVH. Subsequent EKG: reported as anterior infarct, troponin trending down and patient remain asymptomatic RIAN score 4 - HIGH RISK (ASA use in past 7 days, Severe angina, EKG ST changes , Positive cardiac markers) Lipid panel: TGL:150, Cholesterol: 181, LDL: 150 and HDL:23 TSH: 5.43 and Free T4: 0.78 Hemoglobin A1C: 5.8 Imaging: * Awaiting official echo report Medications: * ASA 81mg PO QD * Lovenox 75mg SC QD-Held for cardiac catherization procedure * Metoprolol Tartrate 25mg PO BID * Crestor 10mg PO HS * Will hold second antiplatelet at Dr Padilla's request Status: Acute (2) Hypertension Assessment & Plan: Metoprolol 25mg PO BID Lisinopril 5mg PO daily Continue to monitor with vital sign check Status: Acute (3) HLD (hyperlipidemia) Assessment & Plan: Lipid panel: TGL:150, Cholesterol: 181, LDL: 150 and HDL:23 Medication: * Crestor 10mg PO HS Status: Acute (4) Prophylactic measure Assessment & Plan: GI: Pepcid 20mg PO daily DVT: Lovenox 75mg SC Q12H: Held due to cardiac catherization procedure. Will restart as per cardiology recommendation Heart healthy diet All plans and management discussed with attending, Dr. Borker Status: Acute <Shayna Salas V - Last Filed: 10/24/17 23:58> Objective - Vital Signs/Intake and Output Vital Signs (last 24 hours): Temp Pulse Resp BP Pulse Ox 98.1 F 71 18 153/86 H 98 10/24/17 15:47 10/24/17 16:00 10/24/17 15:47 10/24/17 18:05 10/24/17 15:47 Intake and Output: 10/24/17 10/25/17 18:59 06:59 Intake Total 480 Output Total 400 Balance 80 - Medications Medications: Current Medications Aspirin (Aspirin Chewable) 81 mg PO DAILY [facility] Last Admin: 10/24/17 09:09 Dose: 81 mg Famotidine (Pepcid) 20 mg PO DAILY [facility] Last Admin: 10/24/17 09:11 Dose: 20 mg Lisinopril (Zestril) 5 mg PO DAILY [facility] Last Admin: 10/24/17 09:10 Dose: 5 mg Metoprolol Tartrate (Lopressor) 25 mg PO BID [facility] Last Admin: 10/24/17 18:05 Dose: 25 mg Rosuvastatin Calcium (Crestor) 10 mg PO HS [facility] Last Admin: 10/24/17 21:22 Dose: 10 mg - Labs Labs: 10/24/17 04:24 10/24/17 04:24 PT 12.3 SECONDS (9.7-12.2) H 10/24/17 07:58 INR 1.1 10/24/17 07:58 APTT 35 SECONDS (21-34) H 10/24/17 07:58 Attending/Attestation - Attestation I have personally seen and examined this patient.: Yes I have fully participated in the care of the patient.: Yes I have reviewed all pertinent clinical information, including history, physical exam and plan: Yes Notes (Text): Patient seen, examined, case discussed with medical staff services coordinator. Patient seen and examined post cardiac cath today. Patient denies chest pain denies shortness of breath denies nausea denies vomiting. Patient's left wrist resting on pillow no noted bleeding. Discussed with cardiology patient noted to have triple-vessel disease on cardiac cath. Cardiology has made recommendations for for stenting of RCA and ostial medial and for future date possibly the LAD. Patient's A1c reflects he has impaired glucose tolerance. Patient with his present made aware of cardiac cath findings recommendation for stent placement assistance for recommendation translation provided with both my Turkish-speaking rested as well as Jesica Turkish speaking nurse at bedside. Patient has allowed for a cardiac cath for stents will discuss with cardiology to make arrangements for stent placement. Patient is aware that he would be going to our neighboring hospital for stent placement unaware of what time patient will be need to be transported. Discuss with cardiology would want cardiac cath for stent placement in light of his findings.
--- NOTE | 2017-10-24 21:15 | CP.PCM.PN ---
Subjective - Date & Time of Evaluation Date of Evaluation: 10/24/17 Time of Evaluation: 17:00 - Subjective Subjective: s/p lhcx in am today showing triple vessel CAD ( low syntax score ) in a nondiabetic feeling fine denies any complaints Objective - Vital Signs/Intake and Output Vital Signs (last 24 hours): Temp Pulse Resp BP Pulse Ox 98.1 F 71 18 153/86 H 98 10/24/17 15:47 10/24/17 16:00 10/24/17 15:47 10/24/17 18:05 10/24/17 15:47 Intake and Output: 10/24/17 10/25/17 18:59 06:59 Intake Total 480 Output Total 400 Balance 80 - Medications Medications: Current Medications Aspirin (Aspirin Chewable) 81 mg PO DAILY [facility] Last Admin: 10/24/17 09:09 Dose: 81 mg Famotidine (Pepcid) 20 mg PO DAILY [facility] Last Admin: 10/24/17 09:11 Dose: 20 mg Lisinopril (Zestril) 5 mg PO DAILY [facility] Last Admin: 10/24/17 09:10 Dose: 5 mg Metoprolol Tartrate (Lopressor) 25 mg PO BID [facility] Last Admin: 10/24/17 18:05 Dose: 25 mg Rosuvastatin Calcium (Crestor) 10 mg PO HS [facility] Last Admin: 10/23/17 21:26 Dose: 10 mg - Labs Labs: 10/24/17 04:24 10/24/17 04:24 PT 12.3 SECONDS (9.7-12.2) H 10/24/17 07:58 INR 1.1 10/24/17 07:58 APTT 35 SECONDS (21-34) H 10/24/17 07:58 - Constitutional Appears: Well - Head Exam Head Exam: ATRAUMATIC, NORMAL INSPECTION, NORMOCEPHALIC - Eye Exam Eye Exam: EOMI, Normal appearance, PERRL Pupil Exam: NORMAL ACCOMODATION, PERRL - ENT Exam ENT Exam: Mucous Membranes Moist, Normal Exam - Neck Exam Neck Exam: Full ROM, Normal Inspection. absent: Lymphadenopathy - Respiratory Exam Respiratory Exam: Clear to Ausculation Bilateral, NORMAL BREATHING PATTERN - Cardiovascular Exam Cardiovascular Exam: REGULAR RHYTHM, +S1, +S2. absent: Murmur - GI/Abdominal Exam GI & Abdominal Exam: Soft, Normal Bowel Sounds. absent: Tenderness - Extremities Exam Extremities Exam: Full ROM, Normal Capillary Refill, Normal Inspection. absent : Joint Swelling, Pedal Edema - Back Exam Back Exam: NORMAL INSPECTION - Neurological Exam Neurological Exam: Alert, Awake, CN II-XII Intact, Normal Gait, Oriented x3 - Psychiatric Exam Psychiatric exam: Normal Affect, Normal Mood - Skin Skin Exam: Dry, Intact, Normal Color, Warm Assessment and Plan (1) NSTEMI (non-ST elevated myocardial infarction) Assessment & Plan: triple vessel CAD discussed with patient CABG vs. PCI for low syntax score in a non-diabetic plan for PTCA/stenting of RCA/LCx in am cont asa load with plavix 600mg po x 1 today and then 75mg po daily cont bb, statins, cont acei NPO p mn for cath in am at [facility] Status: Acute (2) Chest pain Status: Acute (3) HLD (hyperlipidemia) Status: Acute (4) Hypertension Status: Acute
--- NOTE | 2017-10-24 23:38 | CARDCATH ---
PROCEDURE DATE: 10/24/2017 INDICATIONS: Mr. Hubert Red is a 52-year-old male who presented to [facility] with complaints of chest pain, unstable angina, and nonST-elevation IN with mildly positive troponins. He underwent echocardiogram showing normal left ventricular ejection fraction, moderate concentric hypertrophy and was brought to the cardiac carpenter labor supervisor for evaluation of non ST-elevation. PROCEDURES PERFORMED: Left heart catheterization with selective left and right coronary angiogram via left radial approach, 6-Kiswahili left radial arterial access, wristband for hemostasis, left ventriculogram. CORONARY ANATOMY: RCA is large-sized vessel that bifurcates into PDA and PLV branches. RCA has ostial 50% stenosis and mid ruptured plaque, 85% stenosis. Distal PDA trifurcates into three branches. The middle branch has diffuse disease and then PL branch is about 60% proximal stenosis. Proximal RCA has 70% to 80% stenosis. Left main is a large-sized vessel that bifurcates into LAD and left circumflex coronary artery. Left circumflex has a mid 70% stenosis that gives off medium-sized obtuse marginal branch which has ostial 80% stenosis. Obtuse marginal 2 has a proximal 90% stenosis and then the left circumflex runs in the AV groove as a medium-sized vessel. Left anterior descending artery has a proximal 70% long diffused lesion, gives off two small-sized diagonal branches. Mid LAD has [id number] 405 to 50% stenosis. Normal left ventricular ejection fraction with end-diastolic pressure of 40-50 mmHg. IMPRESSION: Triple vessel coronary artery disease in a non-diabetic patient, low SYNTAX score. RECOMMENDATIONS: Keep the patient on IV heparin. We will discuss with the patient revascularization strategy of stenting versus CABG. Winston Padilla MD
[2017-10-25 00:54] VITALS: RESP 20
[2017-10-25 05:37] LABS: BASO % 0.4 % (0.0-2.0); EOS # 0.1 K/uL (0.0-0.7); EOS % 1.8 % (0.0-4.0); HEMOGLOBIN 15.8 g/dL (12.0-18.0); LYMPH # 1.8 K/uL (1.0-4.3); LYMPH % 22.6 % (20.0-40.0); MEAN CELL VOLUME 92.9 fL (80.0-94.0); MEAN CORPUSCULAR HEMOGLOBIN 31.9 pg (27.0-31.0); MEAN CORPUSCULAR HGB CONC 34.4 g/dL (33.0-37.0); MEAN PLATELET VOLUME 8.1 fL (7.2-11.7); MONO # 0.6 K/uL (0.0-0.8); MONO % 7.4 % (0.0-10.0); NEUT # 5.5 K/uL (1.8-7.0); NEUT % 67.8 % (50.0-75.0); RBC 4.94 Mil/uL (4.40-5.90); RED CELL DISTRIBUTION WIDTH 13.1 % (11.5-14.5); WHITE BLOOD COUNT 8.1 K/uL (4.8-10.8)
--- NOTE | 2017-10-25 08:06 | CP.PCM.PN ---
Subjective - Date & Time of Evaluation Date of Evaluation: 10/25/17 Time of Evaluation: 06:59 - Subjective Subjective: Patient preparing to be transferred to [facility] for PCI. Patient asymptomatic; denied chest pain, dyspnea, or palpitations. Left radial wrist band intact and no evidence of hematoma at catheter insertion site. Day-time and overnight nurse report 300 mg of Plavix was given prior to transfer. Otherwise no events reported overnight. Objective - Vital Signs/Intake and Output Vital Signs (last 24 hours): Temp Pulse Resp BP Pulse Ox 98.4 F 68 20 155/88 H 94 L 10/24/17 23:30 10/24/17 23:30 10/24/17 23:30 10/25/17 04:54 10/24/17 23:30 Intake and Output: 10/25/17 10/25/17 06:59 18:59 Intake Total 400 Balance 400 - Medications Medications: Current Medications Aspirin (Ecotrin) 81 mg PO DAILY [facility] Clopidogrel Bisulfate (Plavix) 75 mg PO DAILY [facility] Famotidine (Pepcid) 20 mg PO DAILY [facility] Last Admin: 10/24/17 09:11 Dose: 20 mg Lisinopril (Zestril) 10 mg PO DAILY [facility] Metoprolol Tartrate (Lopressor) 25 mg PO BID [facility] Last Admin: 10/25/17 04:54 Dose: 25 mg Rosuvastatin Calcium (Crestor) 40 mg PO HS [facility] - Labs Labs: 10/25/17 05:16 10/24/17 04:24 PT 12.3 SECONDS (9.7-12.2) H 10/24/17 07:58 INR 1.1 10/24/17 07:58 APTT 35 SECONDS (21-34) H 10/24/17 07:58 - Constitutional Appears: Well, Non-toxic - Head Exam Head Exam: ATRAUMATIC, NORMOCEPHALIC - Eye Exam Eye Exam: EOMI, Normal appearance - Respiratory Exam Respiratory Exam: Clear to Ausculation Bilateral, NORMAL BREATHING PATTERN. absent: Accessory Muscle Use - Cardiovascular Exam Cardiovascular Exam: +S1, +S2. absent: Tachycardia, Clicks - Extremities Exam Extremities Exam: absent: Pedal Edema Additional comments: catheter insertion site shows no hematoma - Neurological Exam Neurological Exam: Alert, Awake, Oriented x3 - Psychiatric Exam Psychiatric exam: Normal Affect, Normal Mood - Skin Skin Exam: Dry, Intact, Normal Color, Warm Assessment and Plan - Assessment and Plan (Free Text) Assessment: 52 year old male with a past medical history of hypertension and dyslipidemia who presented to [facility] with typical chest pain and was found to have EKG abnormalities and elevated troponins. He was treated as a NSTEMI and underwent left heart catheterization with selective left and right coronary angiograms via left radial approach that revealed triple vessel coronary artery disease in a non-diabetic patient, with a low SYNTAX score. Plan: 1) Triple vessel CAD in a non-diabetic with a low SYNTAX score - Aspirin 81 PO daily - Plavix 300 mg PO given today 10/25/17; will continue with 75 mg PO once daily going forward - Metoprolol tartarate 25 BID (will switch to ER as metoprolol succinate was the only drug proven to decrease mortality post MN) - Lisinopril 10 mg (increased for better BP) - Rosuvastatin 40 mg High Intensity Statin post MN - Will follow up PTCA/stenting of RCA/LCx Further recommendations per Dr. Padilla.
[2017-10-25 08:44] LABS: BLOOD UREA NITROGEN 15 mg/dL (9-20); GFR AFRICAN-AMERICAN > 60; GFR NON-AFRICAN AMERICAN > 60
[2017-10-25 08:45] LABS: ALB/GLOB RATIO 1.2 (1.0-2.1); ALBUMIN 3.7 g/dL (3.5-5.0); ALT/SGPT 41 U/L (21-72); AST/SGOT 33 U/L (17-59); CALCIUM 8.6 mg/dl (8.6-10.4); MAGNESIUM 2.3 mg/dL (1.6-2.3)
[2017-10-25] MEDS ORDERED: Labetalol 25mg/5ml Syringe ONE (10:28)
--- NOTE | 2017-10-25 11:35 | CP.PCM.PN ---
<Robbi Kevin E - Last Filed: 10/25/17 11:49> Subjective - Date & Time of Evaluation Date of Evaluation: 10/25/17 Time of Evaluation: 06:50 - Subjective Subjective: Medicine progress note ( Dr. Salas's service) Patient was seen and examined as he was preparing to be transported to [facility] for PCI. Patient reports that he is doing well with improved symptoms. Patient denied chest pain, SOB, palpitations, diaphoresis, nausea and vomiting. Objective - Vital Signs/Intake and Output Vital Signs (last 24 hours): Temp Pulse Resp BP Pulse Ox 97.9 F 67 20 143/82 96 10/25/17 06:50 10/25/17 06:50 10/25/17 06:50 10/25/17 06:50 10/25/17 06:50 Intake and Output: 10/25/17 10/25/17 06:59 18:59 Intake Total 450 Balance 450 - Medications Medications: Current Medications Aspirin (Ecotrin) 81 mg PO DAILY [facility] Last Admin: 10/25/17 10:05 Dose: Not Given Clopidogrel Bisulfate (Plavix) 75 mg PO DAILY [facility] Famotidine (Pepcid) 20 mg PO DAILY [facility] Last Admin: 10/25/17 10:05 Dose: Not Given Lisinopril (Zestril) 10 mg PO DAILY [facility] Last Admin: 10/25/17 10:05 Dose: Not Given Metoprolol Tartrate (Lopressor) 25 mg PO BID [facility] Last Admin: 10/25/17 10:05 Dose: Not Given Rosuvastatin Calcium (Crestor) 40 mg PO [facility] - Labs Labs: 10/25/17 05:16 10/25/17 05:16 PT 12.3 SECONDS (9.7-12.2) H 10/24/17 07:58 INR 1.1 10/24/17 07:58 APTT 35 SECONDS (21-34) H 10/24/17 07:58 - Constitutional Appears: Well, No Acute Distress - Head Exam Head Exam: ATRAUMATIC, NORMAL INSPECTION - Eye Exam Eye Exam: EOMI, Normal appearance - ENT Exam ENT Exam: Mucous Membranes Moist - Respiratory Exam Respiratory Exam: Clear to Ausculation Bilateral, NORMAL BREATHING PATTERN. absent: Rhonchi, Wheezes, Respiratory Distress - Cardiovascular Exam Cardiovascular Exam: REGULAR RHYTHM, +S1, +S2. absent: Murmur - GI/Abdominal Exam GI & Abdominal Exam: Soft, Normal Bowel Sounds. absent: Distended, Firm, Guarding, Rigid, Tenderness - Extremities Exam Extremities Exam: Normal Inspection. absent: Calf Tenderness - Neurological Exam Neurological Exam: Alert, Awake, Oriented x3 - Psychiatric Exam Psychiatric exam: Normal Affect Assessment and Plan (1) NSTEMI (non-ST elevated myocardial infarction) Assessment & Plan: Cardiology Consult, Dr. Padilla----> Help appreciated * Cardiac catherization with Dr. 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 Subsequent EKG: reported as anterior infarct, troponin trending down and patient remain asymptomatic RIAN score 4 - HIGH RISK (ASA use in past 7 days, Severe angina, EKG ST changes , Positive cardiac markers) Lipid panel: TGL:150, Cholesterol: 181, LDL: 150 and HDL:23 TSH: 5.43 and Free T4: 0.78 Hemoglobin A1C: 5.8 Imaging: * Echocardiogram: Left ventricle thickness normal with normal size. EF: 65%. Diastolic filling pressures elevated. For a complete impression, please refer to complete report. Medications: * ASA 81mg PO QD * Lovenox 75mg SC QD-Held for cardiac catherization procedure * Metoprolol Tartrate 25mg PO BID * Crestor 10mg PO HS * Plavix 75mg PO daily Status: Acute (2) Hypertension Assessment & Plan: Metoprolol 25mg PO BID Lisinopril 5mg PO daily Continue to monitor with vital sign check Status: Acute (3) HLD (hyperlipidemia) Assessment & Plan: Lipid panel: TGL:150, Cholesterol: 181, LDL: 150 and HDL:23 Medication: * Crestor 10mg PO HS Status: Acute (4) Prophylactic measure Assessment & Plan: GI: Pepcid 20mg PO daily DVT: Lovenox 75mg SC Q12H: Held due to cardiac catherization procedure and PCI. Will resume as per cardiology recommendation Heart healthy diet All plans and management discussed with attending, Dr. Salas Status: Acute <JosueShayna V - Last Filed: 10/25/17 23:20> Objective - Vital Signs/Intake and Output Vital Signs (last 24 hours): Temp Pulse Resp BP Pulse Ox 97.9 F 67 20 143/82 96 10/25/17 06:50 10/25/17 06:50 10/25/17 06:50 10/25/17 06:50 10/25/17 06:50 - Medications Medications: Current Medications Aspirin (Ecotrin) 81 mg PO DAILY [facility] Last Admin: 10/25/17 10:05 Dose: Not Given Clopidogrel Bisulfate (Plavix) 75 mg PO DAILY [facility] Famotidine (Pepcid) 20 mg PO DAILY [facility] Last Admin: 10/25/17 10:05 Dose: Not Given Lisinopril (Zestril) 10 mg PO DAILY [facility] Last Admin: 10/25/17 10:05 Dose: Not Given Metoprolol Tartrate (Lopressor) 25 mg PO BID [facility] Last Admin: 10/25/17 19:41 Dose: Not Given Rosuvastatin Calcium (Crestor) 40 mg PO HS [facility] - Labs Labs: 10/25/17 05:16 10/25/17 05:16 PT 12.3 SECONDS (9.7-12.2) H 10/24/17 07:58 INR 1.1 10/24/17 07:58 APTT 35 SECONDS (21-34) H 10/24/17 07:58 Attending/Attestation - Attestation Notes (Text): Attempted to see patient today but had left for [place] this morning for his cardiac cath. Will attempt to follow-up with patient when he returns. Patient went to [facility] for cardiac cath in light of triple vessel disease.
[2017-10-26 07:28] LABS: BASO % 0.5 % (0.0-2.0); EOS # 0.1 K/uL (0.0-0.7); EOS % 1.6 % (0.0-4.0); HEMOGLOBIN 15.1 g/dL (12.0-18.0); LYMPH # 1.4 K/uL (1.0-4.3); LYMPH % 19.4 % (20.0-40.0); MEAN CELL VOLUME 91.8 fL (80.0-94.0); MEAN CORPUSCULAR HEMOGLOBIN 32.4 pg (27.0-31.0); MEAN CORPUSCULAR HGB CONC 35.3 g/dL (33.0-37.0); MONO # 0.5 K/uL (0.0-0.8); MONO % 7.5 % (0.0-10.0); NEUT # 5.1 K/uL (1.8-7.0); NRBC % 0.1 % (0.0-2.0); RBC 4.67 Mil/uL (4.40-5.90); RED CELL DISTRIBUTION WIDTH 12.5 % (11.5-14.5); WHITE BLOOD COUNT 7.2 K/uL (4.8-10.8)
[2017-10-26 10:51] LABS: ALB/GLOB RATIO 1.1 (1.0-2.1); ALBUMIN 3.7 g/dL (3.5-5.0); ALT/SGPT 42 U/L (21-72); AST/SGOT 40 U/L (17-59); BLOOD UREA NITROGEN 11 mg/dL (9-20); CALCIUM 8.8 mg/dl (8.6-10.4); GFR AFRICAN-AMERICAN > 60; GFR NON-AFRICAN AMERICAN > 60; MAGNESIUM 2.2 mg/dL (1.6-2.3)
--- NOTE | 2017-10-26 17:22 | CP.PCM.PN ---
<Robbi Kevin E - Last Filed: 10/26/17 17:20> Subjective - Date & Time of Evaluation Date of Evaluation: 10/26/17 Time of Evaluation: 07:35 - Subjective Subjective: Medicine progress note ( Dr. Salas's service) Patient was seen and examined at bedside. Patient was resting comfortably in no acute distress with patient's present. Patient is s/p PCI POD #1. Patient reports that he is doing well with improved symptoms. Patient denied chest pain , SOB, palpitations, diaphoresis, nausea, vomiting, fever or chills. Patient is ambulating and tolerating diet. Objective - Vital Signs/Intake and Output Vital Signs (last 24 hours): Temp Pulse Resp BP Pulse Ox 99.0 F 80 20 161/89 H 95 10/26/17 15:20 10/26/17 15:20 10/26/17 15:20 10/26/17 15:20 10/26/17 15:20 Intake and Output: 10/26/17 10/26/17 06:59 18:59 Intake Total 700 400 Output Total 400 Balance 300 400 - Medications Medications: Current Medications Aspirin (Ecotrin) 81 mg PO DAILY [facility] Last Admin: 10/26/17 10:11 Dose: 81 mg Clopidogrel Bisulfate (Plavix) 75 mg PO DAILY [facility] Last Admin: 10/26/17 10:11 Dose: 75 mg Famotidine (Pepcid) 20 mg PO DAILY [facility] Last Admin: 10/26/17 10:11 Dose: 20 mg Lisinopril (Zestril) 10 mg PO DAILY [facility] Last Admin: 10/26/17 10:11 Dose: 10 mg Metoprolol Tartrate (Lopressor) 25 mg PO BID [facility] Last Admin: 10/26/17 10:11 Dose: 25 mg Rosuvastatin Calcium (Crestor) 40 mg PO HS [facility] Last Admin: 10/25/17 23:33 Dose: Not Given - Labs Labs: 10/26/17 07:13 10/26/17 07:13 PT 12.3 SECONDS (9.7-12.2) H 10/24/17 07:58 INR 1.1 10/24/17 07:58 APTT 35 SECONDS (21-34) H 10/24/17 07:58 - Constitutional Appears: Well, No Acute Distress - Head Exam Head Exam: ATRAUMATIC, NORMAL INSPECTION - Eye Exam Eye Exam: EOMI, Normal appearance - ENT Exam ENT Exam: Mucous Membranes Moist - Respiratory Exam Respiratory Exam: Clear to Ausculation Bilateral, NORMAL BREATHING PATTERN. absent: Rhonchi, Wheezes - Cardiovascular Exam Cardiovascular Exam: REGULAR RHYTHM, +S1, +S2. absent: Murmur - GI/Abdominal Exam GI & Abdominal Exam: Soft, Normal Bowel Sounds. absent: Guarding, Rigid, Tenderness - Extremities Exam Extremities Exam: Normal Inspection Additional comments: S/P PCI POD #1 and diagnostic cardiac catherization POD # 2. Right groin, no hematoma. Palpable bilateral DP and PT pulses - Neurological Exam Neurological Exam: Alert, Awake, Oriented x3 - Psychiatric Exam Psychiatric exam: Normal Affect - Skin Skin Exam: Normal Color Assessment and Plan (1) NSTEMI (non-ST elevated myocardial infarction) Assessment & Plan: NSTEMI (non-ST elevated myocardial infarction) Assessment & Plan: Cardiology Consult, Dr. Padilla----> Help appreciated * Cardiac catherization with Dr. 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 Subsequent EKG: reported as anterior infarct, troponin trending down and patient remain asymptomatic RIAN score 4 - HIGH RISK (ASA use in past 7 days, Severe angina, EKG ST changes , Positive cardiac markers) Lipid panel: TGL:150, Cholesterol: 181, LDL: 150 and HDL:23 TSH: 5.43 and Free T4: 0.78 Hemoglobin A1C: 5.8 Imaging: * Echocardiogram: Left ventricle thickness normal with normal size. EF: 65%. Diastolic filling pressures elevated. For a complete impression, please refer to complete report. Medications: * ASA 81mg PO Q * Metoprolol Tartrate 25mg PO BID * Crestor 40mg PO HS * Plavix 75mg PO daily Status: Acute (2) Hypertension Assessment & Plan: Metoprolol 25mg PO BID Lisinopril 5mg PO daily Continue to monitor with vital sign check Status: Acute (3) HLD (hyperlipidemia) Assessment & Plan: Lipid panel: TGL:150, Cholesterol: 181, LDL: 150 and HDL:23 Medication: * Crestor 40mg PO HS Status: Acute (4) Prophylactic measure Assessment & Plan: GI: Pepcid 20mg PO daily DVT: Lovenox 75mg SC Q12H: Held due to cardiac catherization procedure and PCI. Will resume as per cardiology recommendation Heart healthy diet Patient is ambulating Disposition: Will await cardiac clearance in order to discharge patient All plans and management discussed with attending, Dr. Salas Status: Acute <Shayna Salas V - Last Filed: 10/26/17 17:55> Objective - Vital Signs/Intake and Output Vital Signs (last 24 hours): Temp Pulse Resp BP Pulse Ox 99.0 F 80 20 161/89 H 95 10/26/17 15:20 10/26/17 15:20 10/26/17 15:20 10/26/17 15:20 10/26/17 15:20 Intake and Output: 10/26/17 10/26/17 06:59 18:59 Intake Total 700 400 Output Total 400 Balance 300 400 - Medications Medications: Current Medications Aspirin (Ecotrin) 81 mg PO DAILY [facility] Last Admin: 10/26/17 10:11 Dose: 81 mg Clopidogrel Bisulfate (Plavix) 75 mg PO DAILY [facility] Last Admin: 10/26/17 10:11 Dose: 75 mg Famotidine (Pepcid) 20 mg PO DAILY [facility] Last Admin: 10/26/17 10:11 Dose: 20 mg Lisinopril (Zestril) 10 mg PO DAILY [facility] Last Admin: 10/26/17 10:11 Dose: 10 mg Metoprolol Tartrate (Lopressor) 25 mg PO BID [facility] Last Admin: 10/26/17 10:11 Dose: 25 mg Rosuvastatin Calcium (Crestor) 40 mg PO HS [facility] Last Admin: 10/25/17 23:33 Dose: Not Given - Labs Labs: 10/26/17 07:13 10/26/17 07:13 PT 12.3 SECONDS (9.7-12.2) H 10/24/17 07:58 INR 1.1 10/24/17 07:58 APTT 35 SECONDS (21-34) H 10/24/17 07:58 Attending/Attestation - Attestation I have personally seen and examined this patient.: Yes I have fully participated in the care of the patient.: Yes I have reviewed all pertinent clinical information, including history, physical exam and plan: Yes Notes (Text): Patient seen, examined, case discussed with medical scientist. Patient seen this morning with at bedside. Patient underwent therapeutic cath at [place] this morning. Patient notes the axis the right femoral or his cath. There is no bleeding mild pain but H&H is stable. Patient to be evaluated by cardiology to determine when for discharge. Cardiac Catheterization from [place] report not yet available in the EMR system. Reviewed labs this morning with resident during rounds. Assessment and plan 1) Chest pain NSTEMI (non-ST elevated myocardial infarction) Triple-vessel disease Assessment & Plan: Cardiology Consult, Dr. Padilla----> Help appreciated Diagnostic Cardiac catherization with Dr. 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 I discussed with patient and with the assistance of a Czech Speaking nurse , Lani, and agreed for therapeutic cath for RCA and ostial medial scheduled at [facility] on 10/25/17. Labs: Troponin: 1.110---> 0.8440---->0.8390 EKG reviewed - ST segment depressions, LVH. Subsequent EKG: reported as anterior infarct, troponin trending down and patient remain asymptomatic RIAN score 4 - HIGH RISK (ASA use in past 7 days, Severe angina, EKG ST changes , Positive cardiac markers) Lipid panel: TGL:150, Cholesterol: 181, LDL: 150 and HDL:23 TSH: 5.43 and Free T4: 0.78 Hemoglobin A1C: 5.8 Imaging: Echocardiogram: Left ventricle thickness normal with normal size. EF: 65%. Diastolic filling pressures elevated. For a complete impression, please refer to complete report. Medications: ASA 81mg PO Qdaily Metoprolol Tartrate 25mg PO BID Crestor 40mg PO HS Plavix 75mg PO daily Lisinopril 10mg PO daily Status: Acute (2) Hypertension Assessment & Plan: Metoprolol tarate 25mg PO BID Lisinopril 10mg PO daily Continue to monitor with vital sign check Status: Chronic (3) HLD (hyperlipidemia) Assessment & Plan: Lipid panel: TGL:150, Cholesterol: 181, LDL: 150 and HDL:23 Medication: Crestor 40mg PO HS Status: Chronic (4) Impaired glucose tolerance Assessment & Plan: Recommend for diet and execise to prevent overt diabetes Hgba1c: 5.8 Status: Chronic (5) Prophylactic measure Assessment & Plan: GI: Pepcid 20mg PO daily Heart healthy diet Patient is ambulating Disposition: Will await cardiac clearance in order to discharge patient
[2017-10-27 09:13] LABS: BASO # 0.1 K/uL (0.0-0.2); BASO % 0.6 % (0.0-2.0); EOS # 0.2 K/uL (0.0-0.7); EOS % 2.8 % (0.0-4.0); HEMOGLOBIN 15.9 g/dL (12.0-18.0); LYMPH # 1.5 K/uL (1.0-4.3); LYMPH % 16.9 % (20.0-40.0); MEAN CELL VOLUME 91.9 fL (80.0-94.0); MEAN CORPUSCULAR HEMOGLOBIN 32.7 pg (27.0-31.0); MEAN CORPUSCULAR HGB CONC 35.5 g/dL (33.0-37.0); MEAN PLATELET VOLUME 8.1 fL (7.2-11.7); MONO # 0.6 K/uL (0.0-0.8); MONO % 6.4 % (0.0-10.0); NEUT # 6.4 K/uL (1.8-7.0); NEUT % 73.3 % (50.0-75.0); NRBC % 0.1 % (0.0-2.0); RBC 4.88 Mil/uL (4.40-5.90); RED CELL DISTRIBUTION WIDTH 12.7 % (11.5-14.5); WHITE BLOOD COUNT 8.7 K/uL (4.8-10.8)
[2017-10-27 09:31] LABS: ALB/GLOB RATIO 1.1 (1.0-2.1); ALT/SGPT 32 U/L (21-72); AST/SGOT 41 U/L (17-59); BLOOD UREA NITROGEN 16 mg/dL (9-20); CALCIUM 8.9 mg/dl (8.6-10.4); GFR AFRICAN-AMERICAN > 60; GFR NON-AFRICAN AMERICAN > 60; MAGNESIUM 2.2 mg/dL (1.6-2.3)
[2017-10-27] MEDS ORDERED: Enoxaparin 40 mg Syringe SC SCH (10:00)
--- NOTE | 2017-10-27 14:59 | CP.PCM.DIS ---
<Alicja Guzman - Last Filed: 10/27/17 14:49> Provider - Provider Date of Admission: 10/23/17 04:47 Attending physician: Shayna Salas DO Time Spent in preparation of Discharge (in minutes): 55 Hospital Course - Lab Results Lab Results: Most Recent Lab Values WBC 8.7 K/uL (4.8-10.8) 10/27/17 08:53 RBC 4.88 Mil/uL (4.40-5.90) 10/27/17 08:53 Hgb 15.9 g/dL (12.0-18.0) 10/27/17 08:53 Hct 44.9 % (35.0-51.0) 10/27/17 08:53 MCV 91.9 fL (80.0-94.0) 10/27/17 08:53 MCH 32.7 pg (27.0-31.0) H 10/27/17 08:53 MCHC 35.5 g/dL (33.0-37.0) 10/27/17 08:53 RDW 12.7 % (11.5-14.5) 10/27/17 08:53 Plt Count 282 K/uL (130-400) 10/27/17 08:53 MPV 8.1 fL (7.2-11.7) 10/27/17 08:53 Neut % (Auto) 73.3 % (50.0-75.0) 10/27/17 08:53 Lymph % (Auto) 16.9 % (20.0-40.0) L 10/27/17 08:53 [place] % (Auto) 6.4 % (0.0-10.0) 10/27/17 08:53 Eos % (Auto) 2.8 % (0.0-4.0) 10/27/17 08:53 Baso % (Auto) 0.6 % (0.0-2.0) 10/27/17 08:53 Neut # (Auto) 6.4 K/uL (1.8-7.0) 10/27/17 08:53 Lymph # (Auto) 1.5 K/uL (1.0-4.3) 10/27/17 08:53 [place] # (Auto) 0.6 K/uL (0.0-0.8) 10/27/17 08:53 Eos # (Auto) 0.2 K/uL (0.0-0.7) 10/27/17 08:53 Baso # (Auto) 0.1 K/uL (0.0-0.2) 10/27/17 08:53 PT 12.3 SECONDS (9.7-12.2) H 10/24/17 07:58 INR 1.1 10/24/17 07:58 APTT 35 SECONDS (21-34) H 10/24/17 07:58 Sodium 139 mmol/L (132-148) 10/27/17 08:53 Potassium 4.1 mmol/L (3.6-5.2) 10/27/17 08:53 Chloride 103 mmol/L (98-107) 10/27/17 08:53 Carbon Dioxide 22 mmol/L (22-30) 10/27/17 08:53 Anion Gap 17 (10-20) 10/27/17 08:53 BUN 16 mg/dL (9-20) 10/27/17 08:53 Creatinine 0.9 mg/dL (0.8-1.5) 10/27/17 08:53 Est GFR ( Amer) > 60 10/27/17 08:53 Est GFR (Non-Af Amer) > 60 10/27/17 08:53 Random Glucose 178 mg/dL (75-110) H 10/27/17 08:53 Hemoglobin A1c 5.8 % (4.2-6.5) 10/23/17 05:52 Calcium 8.9 mg/dl (8.6-10.4) 10/27/17 08:53 Phosphorus 3.4 mg/dL (2.5-4.5) 10/27/17 08:53 Magnesium 2.2 mg/dL (1.6-2.3) 10/27/17 08:53 Total Bilirubin 0.7 mg/dL (0.2-1.3) 10/27/17 08:53 AST 41 U/L (17-59) 10/27/17 08:53 ALT 32 U/L (21-72) 10/27/17 08:53 Alkaline Phosphatase 73 U/L (38-126) 10/27/17 08:53 Total Creatine Kinase 150 U/L (55-170) 10/23/17 15:05 CK-MB (Mass) 4.95 ng/mL (0.0-3.38) H 10/23/17 15:05 Troponin I 0.8390 ng/mL (0.00-0.120) H* 10/23/17 15:05 Total Protein 7.8 g/dL (6.3-8.3) 10/27/17 08:53 Albumin 4.0 g/dL (3.5-5.0) 10/27/17 08:53 Globulin 3.7 gm/dL (2.2-3.9) 10/27/17 08:53 Albumin/Globulin Ratio 1.1 (1.0-2.1) 10/27/17 08:53 Triglycerides 150 mg/dL (0-149) H D 10/23/17 05:52 Cholesterol 181 mg/dL (0-199) 10/23/17 05:52 LDL Cholesterol Direct 150 mg/dL (0-129) H 10/23/17 05:52 HDL Cholesterol 23 mg/dL (30-70) L 10/23/17 05:52 Free T4 0.78 ng/dL (0.78-2.19) 10/23/17 05:52 TSH 3rd Generation 5.43 mIU/L (0.46-4.68) H 10/23/17 05:52 - Hospital Course Hospital Course: Upon Admission: CC: Chest pain and SOB HPI: Patient is a 52 year old Cambodian-speaking male with a PMH of uncontrolled HTN and hypercholesterolemia who presents complaining of chest pain and shortness of breath. Patient states that last week he experienced 1-2 episodes of chest pain, that became constant over the last two days, prompting his ED visit. Pain is described as burning pain in the center of his chest, nonradiating, constant, 7-8/10 at worst and 0/10 at best, worse with walking and exertion, better with rest, nonpleuritic, nonpositional. Pain is accompanied by difficulty breathing and feeling tired, the way someone feels after running. Patient has no history of similar chest pain/SOB. He last saw a PMD (can't recall name) about 8 months ago for a dizziness spell, at which time he was diagnosed with HTN and high cholesterol and prescribed medication (Losartan-HCTZ , statin, ASA). Patient states that he took the medications for 15 days and stopped because he would forget and didn't feel he needed it. He resumed taking the medications for the last 2 days because he was feeling chest pain. Denies ever having a stress test in the past. PMD: can't remember Worship Leader: none PMH: HTN, hypercholesterolemia. Denies DM. PSH: denies Medications: took for 15 days 8 months ago, then stopped, and resumed for last 2 days: Losartan-HCTZ 100/12.5mg, statin (unknown name/dose), ASA 81mg Allergies: denies Family history: No known history of WA/CVA/CA. Mother at unknown age for unknown reason. Father living without health issues at age 99. Brother has DM. Social History: Cambodian speaking only; lives in [place] with , son and daughter; works various jobs including construction; denies current/prior tobacco use; denies current/prior ETOH; denies current/prior recreational drugs use; denies recent cocaine use; no exercise except for what he does at work; eats various types of food including bread, sandwiches, oatmeal, sugary foods, meat 1-2x per week Code status: Full code No advance directive In the event that he is unable to make his own healthcare decisions, patient wants his Neyda Red to make decisions for him ([phone]) Throughout Hospital Course: Patient was admitted for NSTEMI. NSTEMI (non-ST elevated myocardial infarction) Assessment & Plan: Cardiology Consult, Dr. Padilla----> Help appreciated * Cardiac catherization with Dr. Padilla 10/24/17: as per documentation, patient was noted to have triple vessel disease and due to low syntax score, patient will be having PCI done, 10/25/17 at [facility] * S/P PCI POD#2 * Attending spoke with Dr. Padilla patient had 5 stents placed in total. He is to follow up with Dr. Padilla in [place] Office in 2 weeks. He will resume current medication regimen. Labs: Troponin: 1.110---> 0.8440---->0.8390 EKG reviewed - ST segment depressions, LVH. Subsequent EKG: reported as anterior infarct, troponin trending down and patient remain asymptomatic RIAN score 4 - HIGH RISK (ASA use in past 7 days, Severe angina, EKG ST changes, Positive cardiac markers) Lipid panel: TGL:150, Cholesterol: 181, LDL: 150 and HDL:23 TSH: 5.43 and Free T4: 0.78 Hemoglobin A1C: 5.8 Imaging: * Echocardiogram: Left ventricle thickness normal with normal size. EF: 65%. Diastolic filling pressures elevated. For a complete impression, please refer to complete report. Medications: * ASA 81mg PO Q * Metoprolol Tartrate 25mg PO BID * Crestor 40mg PO HS * Plavix 75mg PO daily Hypertension Assessment & Plan: Metoprolol 25mg PO BID Lisinopril 5mg PO daily Continue to monitor with vital sign check HLD (hyperlipidemia) Assessment & Plan: Lipid panel: TGL:150, Cholesterol: 181, LDL: 150 and HDL:23 Medication: * Crestor 40mg PO HS This is a brief summary of the patient's hospital course. Please review EMR for full record. Discharge Exam - Additional Findings Additional findings: - Constitutional Appears: Well, No Acute Distress - Head Exam Head Exam: ATRAUMATIC, NORMAL INSPECTION - Eye Exam Eye Exam: EOMI, Normal appearance - ENT Exam ENT Exam: Mucous Membranes Moist - Respiratory Exam Respiratory Exam: Clear to Ausculation Bilateral, NORMAL BREATHING PATTERN. absent: Rhonchi, Wheezes - Cardiovascular Exam Cardiovascular Exam: REGULAR RHYTHM, +S1, +S2. absent: Murmur - GI/Abdominal Exam GI & Abdominal Exam: Soft, Normal Bowel Sounds. absent: Guarding, Rigid, Tenderness - Extremities Exam Extremities Exam: Normal Inspection Additional comments: S/P PCI POD #1 and diagnostic cardiac catherization POD # 2. Right groin, no hematoma. Palpable bilateral DP and PT pulses - Neurological Exam Neurological Exam: Alert, Awake, Oriented x3 - Psychiatric Exam Psychiatric exam: Normal Affect - Skin Skin Exam: Normal Color Discharge Plan - Discharge Medications Prescriptions: RX: Aspirin [Ecotrin] 81 mg PO DAILY 30 Days #30 tabec Atorvastatin [Lipitor] 20 mg PO HS 30 Days #30 tab RX: Clopidogrel [Plavix] 75 mg PO DAILY 30 Days #30 tab RX: Lisinopril [Zestril] 5 mg PO DAILY 30 Days #30 tab RX: Metoprolol Tartrate [Lopressor] 25 mg PO BID 30 Days #60 tab - Follow Up Plan Condition: STABLE Disposition: HOME/ ROUTINE Instructions: Chest Pain (DC), Aspirin, Atorvastatin, Clopidogrel, Lisinopril, Metoprolol, Clot Dissolving Drugs for Heart Attack or Stroke, Going Home on Blood Thinners Additional Instructions: He is to follow up with Dr. Padilla at his [facility] - [address] [place] [address] . Please call to make an appointment with the b2b sales professional. Please continue to take the following medications every day until instructed by a doctor otherwise. Aspirin 81mg by mouth daily Plavix 75mg by mouth daily Lipitor 20mg by mouth AT NIGHT Lisinopril 5mg by mouth daily Lopressor 25mg by mouth TWICE a day (morning and at night). ------ l debe hacer un seguimiento con el Dr. Padilla en [facility] - [address] [place], [place] [id number]. Llame al [phone] para programar sukhwinder dari con el cardilogo. Contine tomando los siguientes medicamentos todos los gallego hasta que lo indique un mdico. Aspirina, 81 mg por va oral al da Plavix 75mg por va oral diariamente Lipitor 20mg por va oral EN LA NOCHE Lisinopril 5mg por va oral diariamente Lopressor 25 mg por va oral DOS VECES al da (maana y noche). Referrals: Winston Padilla MD [Staff Provider] - <Shayna Salas V - Last Filed: 10/27/17 20:16> Provider - Provider Date of Admission: 10/23/17 04:47 Attending physician: Shayna Salas, Hospital Course - Lab Results Lab Results: Most Recent Lab Values WBC 8.7 K/uL (4.8-10.8) 10/27/17 08:53 RBC 4.88 Mil/uL (4.40-5.90) 10/27/17 08:53 Hgb 15.9 g/dL (12.0-18.0) 10/27/17 08:53 Hct 44.9 % (35.0-51.0) 10/27/17 08:53 MCV 91.9 fL (80.0-94.0) 10/27/17 08:53 MCH 32.7 pg (27.0-31.0) H 10/27/17 08:53 MCHC 35.5 g/dL (33.0-37.0) 10/27/17 08:53 RDW 12.7 % (11.5-14.5) 10/27/17 08:53 Plt Count 282 K/uL (130-400) 10/27/17 08:53 MPV 8.1 fL (7.2-11.7) 10/27/17 08:53 Neut % (Auto) 73.3 % (50.0-75.0) 10/27/17 08:53 Lymph % (Auto) 16.9 % (20.0-40.0) L 10/27/17 08:53 [place] % (Auto) 6.4 % (0.0-10.0) 10/27/17 08:53 Eos % (Auto) 2.8 % (0.0-4.0) 10/27/17 08:53 Baso % (Auto) 0.6 % (0.0-2.0) 10/27/17 08:53 Neut # (Auto) 6.4 K/uL (1.8-7.0) 10/27/17 08:53 Lymph # (Auto) 1.5 K/uL (1.0-4.3) 10/27/17 08:53 [place] # (Auto) 0.6 K/uL (0.0-0.8) 10/27/17 08:53 Eos # (Auto) 0.2 K/uL (0.0-0.7) 10/27/17 08:53 Baso # (Auto) 0.1 K/uL (0.0-0.2) 10/27/17 08:53 PT 12.3 SECONDS (9.7-12.2) H 10/24/17 07:58 INR 1.1 10/24/17 07:58 APTT 35 SECONDS (21-34) H 10/24/17 07:58 Sodium 139 mmol/L (132-148) 10/27/17 08:53 Potassium 4.1 mmol/L (3.6-5.2) 10/27/17 08:53 Chloride 103 mmol/L (98-107) 10/27/17 08:53 Carbon Dioxide 22 mmol/L (22-30) 10/27/17 08:53 Anion Gap 17 (10-20) 10/27/17 08:53 BUN 16 mg/dL (9-20) 10/27/17 08:53 Creatinine 0.9 mg/dL (0.8-1.5) 10/27/17 08:53 Est GFR ( Amer) > 60 10/27/17 08:53 Est GFR (Non-Af Amer) > 60 10/27/17 08:53 Random Glucose 178 mg/dL (75-110) H 10/27/17 08:53 Hemoglobin A1c 5.8 % (4.2-6.5) 10/23/17 05:52 Calcium 8.9 mg/dl (8.6-10.4) 10/27/17 08:53 Phosphorus 3.4 mg/dL (2.5-4.5) 10/27/17 08:53 Magnesium 2.2 mg/dL (1.6-2.3) 10/27/17 08:53 Total Bilirubin 0.7 mg/dL (0.2-1.3) 10/27/17 08:53 AST 41 U/L (17-59) 10/27/17 08:53 ALT 32 U/L (21-72) 10/27/17 08:53 Alkaline Phosphatase 73 U/L (38-126) 10/27/17 08:53 Total Creatine Kinase 150 U/L (55-170) 10/23/17 15:05 CK-MB (Mass) 4.95 ng/mL (0.0-3.38) H 10/23/17 15:05 Troponin I 0.8390 ng/mL (0.00-0.120) H* 10/23/17 15:05 Total Protein 7.8 g/dL (6.3-8.3) 10/27/17 08:53 Albumin 4.0 g/dL (3.5-5.0) 10/27/17 08:53 Globulin 3.7 gm/dL (2.2-3.9) 10/27/17 08:53 Albumin/Globulin Ratio 1.1 (1.0-2.1) 10/27/17 08:53 Triglycerides 150 mg/dL (0-149) H D 10/23/17 05:52 Cholesterol 181 mg/dL (0-199) 10/23/17 05:52 LDL Cholesterol Direct 150 mg/dL (0-129) H 10/23/17 05:52 HDL Cholesterol 23 mg/dL (30-70) L 10/23/17 05:52 Free T4 0.78 ng/dL (0.78-2.19) 10/23/17 05:52 TSH 3rd Generation 5.43 mIU/L (0.46-4.68) H 10/23/17 05:52 Attending/Attestation - Attestation I have personally seen and examined this patient.: Yes I have fully participated in the care of the patient.: Yes I have reviewed all pertinent clinical information, including history, physical exam and plan: Yes Notes (Text): Patient seen, examined, case discussed with medical center manager. Patient seen this morning. Patient denies acute complaints. Patient underwent therapeutic cath at [facility] and is postoperative day 2. Discussed with Dr. Padilla, patient has 5 stents: 2 in RCA and 2 in the obtuse marginal. From cardio standpoint, patient stable for discharge. He recommended for to follow-up in 1-2 weeks in his [place] office. Information provided upon discharge. Cath site: clean/dry intact. No pain elicited. Reviewed labs this morning with resident during rounds. Medications on discharge: (1 month supply; will need to follow-up for refills) 1) Aspirin 81mg PO daily 2) Metoprolol Tartrate 25mg PO BID 3) Lipitor 20mg POqHS 4) Plavix 75mg PO daily 5) Lisinopril 10mg PO daily This is a summay of patient's hospitalization. please see EMR for details of record. Discharge Diagnoses: 1) Chest pain (resolved) NSTEMI (non-ST elevated myocardial infarction) Triple-vessel disease s/p ANGELY X5 (RCA and obtuse marginal) Assessment & Plan: Cardiology Consult, Dr. Padilla----> Help appreciated Diagnostic Cardiac catherization with Dr. Padilla 10/24/17: as per documentation: patient was noted to have triple vessel disease and due to low syntax score I discussed with patient and with the assistance of a Cambodian Speaking nurse, Lani, and agreed for therapeutic cath for RCA and ostial medial on , scheduled at [facility] on 10/25/17. I discussed with cardiology, patient has 5 stents: 2 in RCA and 2 in the obtuse marginal artery placed. Patient will need to follow-up in the office to schedule for cardiac cath for the LAD. Labs: Troponin: 1.110---> 0.8440---->0.8390 EKG reviewed - ST segment depressions, LVH. Subsequent EKG: reported as anterior infarct, troponin trending down and patient remain asymptomatic RIAN score 4 - HIGH RISK (ASA use in past 7 days, Severe angina, EKG ST changes , Positive cardiac markers) Lipid panel: TGL:150, Cholesterol: 181, LDL: 150 and HDL:23 TSH: 5.43 and Free T4: 0.78 Hemoglobin A1C: 5.8 Imaging: Echocardiogram: Left ventricle thickness normal with normal size. EF: 65%. Diastolic filling pressures elevated. For a complete impression, please refer to complete report. Medications: ASA 81mg PO Qdaily Metoprolol Tartrate 25mg PO BID Crestor 40mg PO HS Plavix 75mg PO daily Lisinopril 10mg PO daily Status: Stable (2) Hypertension Assessment & Plan: Metoprolol tarate 25mg PO BID Lisinopril 10mg PO daily Continue to monitor with vital sign check Status: Chronic (3) HLD (hyperlipidemia) Assessment & Plan: Lipid panel: TGL:150, Cholesterol: 181, LDL: 150 and HDL:23 Medication: Crestor 40mg PO HS-->switched to Lipitor 20mg POqHS on discharge Status: Chronic (4) Impaired glucose tolerance Assessment & Plan: Recommend for diet and execise to prevent overt diabetes Hgba1c: 5.8 Status: Chronic (5) Prophylactic measure Assessment & Plan: GI: Pepcid 20mg PO daily Heart healthy diet Patient is ambulating
[2017-10-27] MEDS ORDERED: Influenza Vaccine 60 mcg/0.5 mL SYR (4YR UP) IM ONE (15:58)
[2017-10-27 16:06] VITALS: BP 165/87; PULSE 78; TEMP 98.8; O2SAT 97
== END 2017-10-27 16:58 | disposition home or self-care (01) | DRG 853 ==
LOC: C.ER 01:30 → C.9E 04:47 → C.6T 18:01
PROVIDERS: ADMIT Hospitalist; ATTEND Hospitalist
PROC: B2151ZZ Fluoroscopy of Left Heart using Low Osmolar Contrast (ICD-10-PCS; 2017-10-24)
PROC: B2111ZZ Fluoroscopy of Multiple Coronary Arteries using Low Osmolar Contrast (ICD-10-PCS; 2017-10-24)
PROC: 4A023N7 Measurement of Cardiac Sampling and Pressure, Left Heart, Percutaneous Approach (ICD-10-PCS; principal; 2017-10-24 09:00)
PROC: 027137Z Dilation of Coronary Artery, Two Arteries with Four or More Drug-eluting Intraluminal Devices, Percutaneous Approach (ICD-10-PCS; 2017-10-25)
DX: I21.4 Non-ST elevation (NSTEMI) myocardial infarction (principal); I25.110 Atherosclerotic heart disease of native coronary artery with unstable angina pectoris; I10 Essential (primary) hypertension; E78.5 Hyperlipidemia, unspecified; E78.00 Pure hypercholesterolemia, unspecified; Z79.82 Long term (current) use of aspirin; Z91.14 Patient's other noncompliance with medication regimen

== ENCOUNTER 2017-11-15 08:16 | Emergency (ER) | payer OTHER ==
[2017-11-15 08:26] VITALS: PULSE 67; RESP 18; BMI 29.7
--- NOTE | 2017-11-15 08:51 | C.PDOC ---
History Of Present Illness 52 y/o male with history of Cardiac stent placed in 1 month ago presents to ED with complaints of gradual pruritus for 5 days to whole body worse on hands and feet. Patient states he was started on Cardiac medications [address] Padilla and states he has been using anti fungal cream to area with no improvement. Patient admits to tingling to mouth and itching to abdomen, states when he scratches gets hives and reports he has stopped scratching. Patient denies fever, sob, nausea, vomiting, mouth swelling or any other complaints at this time. Time Seen by Provider: 11/15/17 08:24 Chief Complaint (Nursing): Abnormal Skin Integrity History Per: Patient History/Exam Limitations: no limitations Onset/Duration Of Symptoms: Days Current Symptoms Are (Timing): Still Present Quality Of Symptoms: Itching Past Medical History Reviewed: Historical Data, Nursing Documentation, Vital Signs Vital Signs: Last Vital Signs Temp 97.9 F 11/15/17 08:24 Pulse 67 11/15/17 08:24 Resp 18 11/15/17 08:24 BP 169/99 H 11/15/17 08:24 Pulse Ox 98 11/15/17 09:20 - Medical History PMH: HTN, Hypercholesterolemia Surgical History: No Surg Hx - [facility] Procedures DILATION OF 2 COR ART WITH 4 DRUG-ELUT, PERC APPROACH (10/23/17) FLUOROSCOPY OF LEFT HEART USING LOW OSMOLAR CONTRAST (10/23/17) FLUOROSCOPY OF MULT COR ART USING L OSM CONTRAST (10/23/17) MEASURE OF CARDIAC SAMPL & PRESSURE, L HEART, PERC APPROACH (10/23/17) Family History: States: No Known Family Hx - Social History Hx Tobacco Use: No Hx Alcohol Use: No Hx Substance Use: No - Immunization History Hx Tetanus Toxoid Vaccination: No Hx Influenza Vaccination: No Hx Pneumococcal Vaccination: No Review Of Systems Constitutional: Negative for: Fever, Chills Cardiovascular: Negative for: Chest Pain Respiratory: Negative for: Shortness of Breath Gastrointestinal: Negative for: Nausea, Vomiting Skin: Positive for: Rash Neurological: Negative for: Weakness, Numbness Physical Exam - Physical Exam Appears: Non-toxic, No Acute Distress Skin: Warm, Dry, Rash (Hives around wrists secondary to scratching) Head: Atraumatic, Normacephalic Eye(s): bilateral: Normal Inspection Oral Mucosa: Moist Tongue: Normal Appearing, No Swelling Lips: Normal Appearing, No Swelling Throat: Normal, No Erythema, No Exudate Neck: Normal ROM, Supple Cardiovascular: Rhythm Regular Respiratory: Normal Breath Sounds, No Rales, No Rhonchi, No Wheezing Gastrointestinal/Abdominal: Soft, No Tenderness, No Guarding, No Rebound Extremity: Normal ROM, Capillary Refill (<2 seconds) Neurological/Psych: Oriented x3, Normal Speech, Normal Cognition ED Course And Treatment O2 Sat by Pulse Oximetry: 98 (RA) Pulse Ox Interpretation: Normal Medical Decision Making Medical Decision Making: Plan: Benadryl administered Patient discharged and advised to follow up with clinic Disposition Counseled Patient/Family Regarding: Need For Followup, Rx Given - Disposition Referrals: [facility] [Outside] Disposition: HOME/ ROUTINE Disposition Time: 08:50 Condition: STABLE Prescriptions: DiphenhydrAMINE [Benadryl] 50 mg PO TID #12 cap Forms: Gen Discharge Inst Gabonese, [facility] (Gabonese) - POA Present On Arrival: None - Clinical Impression Clinical Impression: Skin irritation, Rash - Scribe Statement The provider has reviewed the documentation as recorded by the Namrata Maharaj All medical record entries made by the Remyibmelinda were at my direction and personally dictated by me. I have reviewed the chart and agree that the record accurately reflects my personal performance of the history, physical exam, medical decision making, and the department course for this patient. I have also personally directed, reviewed, and agree with the discharge instructions and disposition.
[2017-11-15 10:05] VITALS: BP 148/82; TEMP 98; O2SAT 97
== END 2017-11-15 10:03 | disposition home or self-care (01) ==
LOC: C.ER 08:16
DX: R21 Rash and other nonspecific skin eruption (principal)